=== PATIENT | female | born 1950 | race Caucasian/White ===

== ENCOUNTER 2018-06-18 09:39 | Outpatient (CLI) | payer MEDICARE, OTHER | END 2018-06-18 09:40 | disposition home or self-care (01) | LOC: BICMAMMO 09:39 | PROVIDERS: ATTEND Internal Medicine | DX: Z12.31 Encounter for screening mammogram for malignant neoplasm of breast (principal); Z80.3 Family history of malignant neoplasm of breast; R92.1 Mammographic calcification found on diagnostic imaging of breast; N64.89 Other specified disorders of breast; L90.5 Scar conditions and fibrosis of skin; Z98.890 Other specified postprocedural states | CPT/HCPCS: 77063; 77067 ==

== ENCOUNTER 2019-06-07 09:06 | Outpatient (CLI) | payer MEDICARE, OTHER ==
--- NOTE | 2019-06-07 09:37 | RAD ---
XR Foot Lt 3 View STANDARD HISTORY: Injury, left foot pain FINDINGS: There is a nondisplaced fracture involving the base of the fifth metatarsal.
== END 2019-06-07 09:07 | disposition home or self-care (01) ==
LOC: SCSRAD 09:06
PROVIDERS: ATTEND Nurse Practitioner Family
DX: S99.922A Unspecified injury of left foot, initial encounter (principal)

== ENCOUNTER 2020-03-10 14:26 | Outpatient (CLI) | payer MEDICARE, OTHER ==
--- NOTE | 2020-03-10 16:17 | MMO ---
Bilateral MAMMO Bilat Screen [facility]. CLINICAL HISTORY: Patient is 69 years old and is seen for screening. The patient has the following family history of breast cancer: paternal grandfather, at age 92, malignant (generic). The patient has no personal history of cancer. The patient has a history of bilateral Breast reduction in 2001 - benign. VIEWS: The views performed were: bilateral craniocaudal with tomosynthesis and bilateral mediolateral oblique with tomosynthesis. FILMS COMPARED: The present examination has been compared to prior imaging studies performed at [facility] on 11/20/2014, 01/22/2016, 01/24/2017 and 06/18/2018. This study has been interpreted with the assistance of computer-aided detection. MAMMOGRAM FINDINGS: There are scattered fibroglandular densities. There are benign appearing calcifications seen in both breasts. There are stable post-operative changes. There are no suspicious masses, suspicious calcifications, or new areas of architectural distortion. IMPRESSION: THERE IS NO MAMMOGRAPHIC EVIDENCE OF MALIGNANCY. A ROUTINE FOLLOW-UP MAMMOGRAM IN 1 YEAR IS RECOMMENDED. THE RESULTS OF THIS EXAM WERE SENT TO THE PATIENT. ACR BI-RADS Category 2 - Benign finding MAMMOGRAPHY NOTE: 1. A negative mammogram report should not delay a biopsy if a dominant of clinically suspicious mass is present. 2. Approximately 10% to 15% of breast cancers are not detected by mammography. 3. Adenosis and dense breasts may obscure an underlying neoplasm. Reported by: CHAZ NWEELL MD Electonically Signed: [id number]
== END 2020-03-10 14:27 | disposition home or self-care (01) ==
LOC: BICMAMMO 14:26
PROVIDERS: ATTEND Internal Medicine
DX: Z12.31 Encounter for screening mammogram for malignant neoplasm of breast (principal); Z80.3 Family history of malignant neoplasm of breast; Z98.82 Breast implant status
CPT/HCPCS: 77063; 77067